=== PATIENT | male | born 1980 | race Caucasian/White ===

== ENCOUNTER 2016-07-04 15:24 | Emergency (ER) | payer OTHER ==
[2016-07-04] MEDS ORDERED: BACLOFEN10 M1 PO (16:11)
[2016-07-04] MEDS ORDERED: BUSPIRONE HCL10 M2 PO (16:11)
[2016-07-04] MEDS ORDERED: PERIDEX118 ML PO (16:11)
[2016-07-04] MEDS ORDERED: CLEOCIN HCL300 M1 PO (16:12)
[2016-07-04] MEDS ORDERED: COLACE100 M1 PO (16:12)
[2016-07-04] MEDS ORDERED: ETODOLAC500 M1 PO (16:12)
[2016-07-04] MEDS ORDERED: NEURONTIN600 M1 PO (16:13)
[2016-07-04] MEDS ORDERED: GUAIFENESIN400 M1 PO (16:13)
[2016-07-04] MEDS ORDERED: HEMORRHOIDAL OI57 GM TOP (16:14)
[2016-07-04] MEDS ORDERED: NORCO 5-325 TA1 EACH PO (16:15)
[2016-07-04] MEDS ORDERED: HYDROCORTISONE-57 GM TOP (16:16)
[2016-07-04] MEDS ORDERED: MELATONIN3 M4 PO (16:19)
[2016-07-04] MEDS ORDERED: CLARITIN10 M6 PO (16:19)
[2016-07-04] MEDS ORDERED: PRINIVIL20 M1 PO (16:19)
[2016-07-04] MEDS ORDERED: HYDROXYZINE HCL10 M1 PO (16:19)
[2016-07-04] MEDS ORDERED: NICOTINE PATCH1 EAC2 PO (16:20)
[2016-07-04] MEDS ORDERED: MS CONTIN30 M1 PO (16:20)
[2016-07-04] MEDS ORDERED: MINIPRESS2 M1 PO (16:20)
[2016-07-04] MEDS ORDERED: SERTRALINE HCL100 M5 PO (16:21)
[2016-07-04] MEDS ORDERED: METAMUCIL PACK3.4 G1 PO (16:21)
[2016-07-04] MEDS ORDERED: NASACORT10.8 M1 (16:22)
[2016-07-04] MEDS ORDERED: TRIAMCINOLONE AC TOP (16:23)
[2016-07-04] MEDS ORDERED: CAPSAICIN TOP (16:23)
[2016-07-04 16:29] LABS: BASO % 0.5 % (0-2); EOS % 2.4 % (0-7); EOSINOPHIL ABSOLUTE COUNT 0.2 tho/cmm (0.0-0.7); HCT-HEMATOCRIT 45.9 % (36.0-53.5); HGB-HEMOGLOBIN 16.1 gm/dl (13.5-17.0); IMMATURE GRANULOCYTES ABSOLUTE 0.01 tho/cmm (0-0.03); IMMATURE GRANULOCYTES PERCENT 0.2 % (0-0.3); LYMPH % 33.1 % (20-45); LYMPH ABSOLUTE COUNT 2.1 tho/cmm (0.8-4.5); MCH (MEAN CORPUSCULAR HGB) 31.4 pg (28.0-32.0); MCHC MEAN CORPUSCULAR HGB CONC 35.1 % (32.0-36.0); MCV (MEAN CELL VOLUME) 89.5 fl (82.0-96.0); MEAN PLATELET VOLUME 12.5 cmc (9.4-12.4); MONO % 5.5 % (0-12); MONOCYTE ABSOLUTE COUNT 0.4 tho/cmm (0.0-1.2); NEUTROPHIL ABSOLUTE COUNT 3.7 tho/cmm (1.6-8.0); NEUTROPHIL-AUTOMATED 3.7 tho/cmm (1.6-8.0); NEUTROPHILS % 58.3 % (40-80); PLATELET COUNT 156 tho/cmm (150-450); RED BLOOD COUNT 5.13 mil/cmm (4.40-5.70); RED CELL DISTRIBUTION WIDTH 12.4 % (12.4-16.4); WHITE BLOOD COUNT 6.4 tho/cmm (4.0-10.0)
[2016-07-04 16:46] LABS: ALB/GLOB RATIO 1.1 (0.8-2.0); ALKALINE PHOSPHATASE 98 U/L (33-138); ALT/SGPT 87 U/L (12-78); BILIRUBIN,TOTAL 0.5 mg/dl (0.0-1.5); BLOOD UREA NITROGEN 11 mg/dl (6-24); CALCIUM 8.9 mg/dl (8.5-10.5); CARBON DIOXIDE-VENOUS 28 mmol/L (22-32); CHLORIDE 97 mmol/l (96-110); CREATININE 0.97 mg/dl (0.60-1.30); SODIUM 138 mmol/L (135-145); eGFR VALUE FOR BLACK >90 mL/Min
[2016-07-04 16:47] LABS: ANION GAP 17 mmol/L (0-20)
[2016-07-04 16:55] LABS: AST/SGOT 42 U/L (10-40); GLUCOSE 464 mg/dL (70-110); POTASSIUM 4.2 mmol/L (3.7-5.1)
[2016-07-04 17:03] LABS: URINE LEUKOCYTE ESTERASE NEGATIVE (NEG); URINE PROTEIN NEGATIVE (NEG)
[2016-07-04 17:10] LABS: URINE APPEARANCE CLEAR; URINE BILIRUBIN NEGATIVE (NEG); URINE BLOOD NEGATIVE (NEG); URINE COLOR YELLOW; URINE GLUCOSE (UA) LARGE (NEG); URINE KETONE NEGATIVE (NEG); URINE NITRITE NEGATIVE (NEG)
[2016-07-04] MEDS ORDERED: GLUCOPHAGE500 M3 PO (17:52)
== END 2016-07-04 17:59 ==
LOC: EDMED 15:24
PROVIDERS: Nurse Practitioner Family
DX: R73.9 Hyperglycemia, unspecified (principal); I10 Essential (primary) hypertension; F17.210 Nicotine dependence, cigarettes, uncomplicated
CPT/HCPCS: J7030